=== PATIENT | male | born 1940 | race Caucasian/White ===

== ENCOUNTER → 2016-12-10 | Outpatient (CLI) | payer MEDICARE, OTHER ==
[~2016-12-10] MED LIST: AMLO-145 PO; ASPI1CPM8 PO; DOCU-144 PO; FINA5TAB PO; ISOS10TA2 PO; METO-448 PO; OMEP20CA16 PO; TERA5CAP3 PO
--- NOTE | 2016-12-10 10:18 | RADRPT ---
PROCEDURE: Carotid ultrasound CLINICAL INDICATION: Carotid stenosis with prior right sided endarterectomy., carotid bruits TECHNIQUE: Gonsalez scale, color doppler, spectral doppler ultrasound of the bilateral carotid and micky tebral arteries. This study indirectly references the measurement of the distal ICA diameter as the denominator for s tenosis measurement. Validated velocity measurements with angiographic measurements, velocity criter ia are extrapolated from diameter data as defined by: *Cartoid artery stenosis: gonsalez-scale and Doppl er US diagnosis. Society of Radiologists in Ultrasound Consensus Conference. Radiology 2003; 229: 34 0-346. SRU Consensus Conference Criteria for the Diagnosis of Carotid Artery Stenosis* Degree of Stenosis, % ICA PSV, cm/sec Plaque Estimate, % ICA/CCA PSV Ratio Normal <125 None <2.0 <50 <125 <50 <2.0 50 69 125-230 >50 2.0-4.0 >70 but less than near occlusion >230 >50 <4.0 Near occlusion High, low, or undetectable Visible Variable Total occlusion Undetectable Visible, no detectable lumen Not applicable COMPARISON: Carotid duplex 11/02/2015, CT angiography of the neck 11/04/2015 FINDINGS: Location Right CCA53 cm/sec Prox ICA 93 cm/sec Mid KOU611 cm/sec Dist XGO731 cm/sec ECA83 cm/sec ICA/CCA2.6 Left CCA70 cm/sec Prox ICA 92 cm/sec Mid BAN768 cm/sec Dist KXM586 cm/sec VDA852 cm/sec ICA/CCA2.8 Plaque burden: Minimal plaque is present within the right internal carotid artery, improved. Modera te plaque is present within the left internal carotid artery, unchanged Antegrade flow is seen within the vertebral arteries bilaterally. IMPRESSION: Although velocities are minimally elevated within the right internal carotid artery there is no khoa esponding significant plaque seen; this is significantly improved in appearance compatible with the history of prior right endarterectomy. Moderate plaque within the left internal carotid artery producing flow acceleration compatible with 50 - 69% stenosis is similar in appearance although velocities are slightly decreased from prior exa mination. RPTAT: AADD .Gasotn Reese MD, MD Date Time Electronically viewed and signed by .Gaston Reese MD, on 12/10/2016 10:18 .B/
== END | disposition home or self-care (01) ==
LOC: VAS 09:03
PROVIDERS: ATTEND Family Medicine
DX: I65.22 Occlusion and stenosis of left carotid artery (principal); Z98.890 Other specified postprocedural states
CPT/HCPCS: 93880

== ENCOUNTER → 2017-10-24 | Outpatient (CLI) | END | disposition home or self-care (01) ==

== ENCOUNTER → 2018-05-21 | Outpatient (CLI) | END | disposition home or self-care (01) ==

== ENCOUNTER 2018-11-13 11:00 | Inpatient (IN) | payer MEDICARE, OTHER ==
[2018-11-10 12:51] VITALS: BMI 27.1
[~2018-11-13] VITALS: Ht 172.7 cm; Wt 85.9 kg
[~2018-11-13 11:00] MED LIST changes: -AMLO-145 PO; +ASPI-535 PO; -ASPI1CPM8 PO; -FINA5TAB PO; +FINA5TAB4 PO; +FLUT16SP17 NASAL; +HYDR12.544 PO; -ISOS10TA2 PO; +METO-407 PO; -METO-448 PO; +NIFE30TA23 PO; -OMEP20CA16 PO
[2019-03-31] VITALS (18 sets, daily range): BP systolic 116–198; BP diastolic 45–87; PULSE 61–89; RESP 13–30; Ht 172.7 cm; Wt 85.9 kg
[2019-03-31] MEDS ORDERED: LACTATED RINGER'S 1,000 ML IV SCH (15:00)
[2019-03-31] MEDS ORDERED: THROMBIN 5000 UNIT (RECOTHROM) VIAL ONE (15:55)
[2019-03-31] MEDS ORDERED: GELATIN SIZE 100 SPONGE ONE (15:55)
[2019-03-31] MEDS ORDERED: HEPARIN 1000 UNITS/ML 10 ML INJ ONE ×2 (15:56→17:57)
[2019-03-31] MEDS ORDERED: LIDOCAINE 1% (MPF) 30 ML INJ ONE (15:56)
[2019-03-31] MEDS ORDERED: IOHEXOL 300MG/ML 30 ML BTL ONE (15:56)
[2019-03-31] MEDS ORDERED: HEPARIN 1000 UNITS/ML 10 ML INJ IRR ONE (16:30)
[2019-03-31] MEDS ORDERED: HYDROmorphONE 1 MG/5 ML IV SYRINGE IV PRN ×2 (17:00)
[2019-03-31] MEDS ORDERED: PROCHLORPERAZINE 10 MG INJ IV PRN (17:00)
[2019-03-31] MEDS ORDERED: SEVOFLURANE 15 MIN ONE (17:00)
[2019-03-31] MEDS ORDERED: GLYCOPYRROLATE 0.4 MG INJ ONE (17:00)
[2019-03-31] MEDS ORDERED: DIPHENHYDRAMINE 50 MG INJ IV PRN (17:00)
[2019-03-31] MEDS ORDERED: MEPERIDINE 25 MG INJ IV PRN (17:00)
[2019-03-31] MEDS ORDERED: NEOSTIGMINE 3 MG/3 ML SYRINGE ONE (17:00)
[2019-03-31] MEDS ORDERED: ONDANSETRON 4 MG INJ IV PRN ×2 (17:00→20:00)
[2019-03-31] MEDS ORDERED: FENTAnyl 50 MCG/ML VIAL IV PRN ×2 (17:00→20:00)
[2019-03-31] MEDS ORDERED: ROCURONIUM 50 MG INJ ONE (17:28)
[2019-03-31] MEDS ORDERED: ONDANSETRON 4 MG INJ ONE (17:28)
[2019-03-31] MEDS ORDERED: LIDOCAINE 2% (SDV) 5 ML INJ ONE (17:28)
[2019-03-31] MEDS ORDERED: SUCCINYLCHOLINE CHLORIDE 100 MG/5 ML SYG IV ONE (17:28)
[2019-03-31] MEDS ORDERED: DEXAMETHASONE 4 MG/ML 5 ML INJ ONE (17:28)
[2019-03-31] MEDS ORDERED: PROPOFOL 20 ML ONE (17:28)
[2019-03-31] MEDS ORDERED: FAMOTIDINE 20 MG INJ ONE (17:28)
[2019-03-31] MEDS ORDERED: CLINDAMYCIN 900 MG (PMX) 50 ML IVPB ONE (17:48)
[2019-03-31] MEDS ORDERED: FENTAnyl 50 MCG/ML VIAL ONE (19:26)
[2019-03-31] MEDS ORDERED: hydrALAzine 20 MG INJ ONE (19:28)
[2019-03-31] MEDS ORDERED: HYDROmorphONE 0.5 MG/0.5 ML SYG IV PRN ×2 (20:00)
[2019-03-31] MEDS ORDERED: hydrALAzine 20 MG INJ IV PRN (20:00)
[2019-04-01] VITALS (52 sets, daily range): BP systolic 104–183; BP diastolic 49–139; PULSE 73–120; RESP 15–28
[2019-04-01] MEDS: HYDROmorphONE 1 MG/ML SYG IV PRN ×4 (01:24→16:23)
[2019-04-01] MEDS: FINASTERIDE 5 MG TAB PO SCH (08:40)
[2019-04-01] MEDS ORDERED: METOPROLOL 100 MG TAB PO SCH (09:00)
[2019-04-01] MEDS ORDERED: NIFEdipine (XL) 30 MG TAB PO SCH (09:00)
[2019-04-01] MEDS ORDERED: METOPROLOL 5 MG INJ IV ONE (09:30)
[2019-04-01] MEDS ORDERED: NA POLYST SULFON 15 GM/60 ML BTL PO ONE (11:30)
[2019-04-01] MEDS: SOD CHLORIDE 0.9% 1,000 ML IV SCH (11:37)
[2019-04-01] MEDS ORDERED: NIFEdipine (XL) 30 MG TAB PO ONE (13:00)
[2019-04-01] MEDS ORDERED: hydrALAzine 20 MG INJ IV PRN (13:00)
[2019-04-01] MEDS: METOPROLOL 100 MG TAB PO SCH (21:36)
[2019-04-01] MEDS: NIFEdipine (XL) 30 MG TAB PO SCH (21:36)
[2019-04-02] VITALS (29 sets, daily range): BP systolic 93–182; BP diastolic 51–143; PULSE 72–98; RESP 15–29
[2019-04-02] MEDS: HYDROmorphONE 1 MG/ML SYG IV PRN ×3 (02:51→18:17)
[2019-04-02] MEDS: SOD CHLORIDE 0.9% 1,000 ML IV SCH (05:17)
[2019-04-02] MEDS: FINASTERIDE 5 MG TAB PO SCH (08:02)
[2019-04-02] MEDS: METOPROLOL 100 MG TAB PO SCH ×2 (08:03→21:43)
[2019-04-02] MEDS: NIFEdipine (XL) 30 MG TAB PO SCH (08:03)
[2019-04-02] MEDS: NIFEdipine (XL) 60 MG TAB PO SCH ×2 (08:11→21:47)
[2019-04-02] MEDS: TERAZOSIN 5 MG CAP PO SCH ×2 (09:12→21:46)
[2019-04-02] MEDS: GUAIFENESIN/DM 5ML CUP PO PRN (21:42)
[2019-04-02] MEDS ORDERED: DOCUSATE SODIUM 100 MG CAP PO PRN (22:00)
[2019-04-03] VITALS (8 sets, daily range): BP systolic 121–146; BP diastolic 36–65; PULSE 70–89; RESP 18–22
[2019-04-03] MEDS: BETHANECHOL 10 MG TAB PO SCH ×3 (09:31→20:29)
[2019-04-03] MEDS: NIFEdipine (XL) 60 MG TAB PO SCH ×2 (09:31→20:29)
[2019-04-03] MEDS: TERAZOSIN 5 MG CAP PO SCH ×2 (09:31→20:29)
[2019-04-03] MEDS: METOPROLOL 100 MG TAB PO SCH ×2 (09:32→20:30)
[2019-04-03] MEDS: FINASTERIDE 5 MG TAB PO SCH (09:32)
[2019-04-03] MEDS: NA PHOSPHATE/BIPHOS 133 ML ENEMA PR PRN (12:24)
[2019-04-03] MEDS ORDERED: CHLORPROMAZINE 10 MG TAB PO ONE (16:30)
[2019-04-03] MEDS ORDERED: CHLORPROMAZINE 25 MG TAB PO ONE (18:30)
[2019-04-04] VITALS (7 sets, daily range): BP systolic 121–153; BP diastolic 59–77; PULSE 65–83; RESP 18–19
[2019-04-04] MEDS: NA PHOSPHATE/BIPHOS 133 ML ENEMA PR PRN (05:34)
[2019-04-04] MEDS: BETHANECHOL 10 MG TAB PO SCH ×3 (08:56→20:54)
[2019-04-04] MEDS: FINASTERIDE 5 MG TAB PO SCH (08:57)
[2019-04-04] MEDS: NIFEdipine (XL) 60 MG TAB PO SCH ×2 (08:57→20:54)
[2019-04-04] MEDS: TERAZOSIN 5 MG CAP PO SCH ×2 (08:57→20:52)
[2019-04-04] MEDS: METOPROLOL 100 MG TAB PO SCH ×2 (08:57→20:54)
[2019-04-04] MEDS: GUAIFENESIN/DM 5ML CUP PO PRN (16:50)
[2019-04-05 04:20] VITALS: BP 120/75; PULSE 62; RESP 18
[2019-04-05 07:15] VITALS: BP 136/63; PULSE 78; RESP 18
[2019-04-05] MEDS: FINASTERIDE 5 MG TAB PO SCH (08:58)
[2019-04-05] MEDS: BETHANECHOL 10 MG TAB PO SCH ×3 (08:58→21:05)
[2019-04-05] MEDS: METOPROLOL 100 MG TAB PO SCH ×2 (08:58→21:05)
[2019-04-05] MEDS: NIFEdipine (XL) 60 MG TAB PO SCH ×2 (08:58→21:07)
[2019-04-05] MEDS: TERAZOSIN 5 MG CAP PO SCH ×2 (08:58→21:06)
[2019-04-05 11:34] VITALS: BP 125/69; PULSE 89; RESP 18
[2019-04-05 15:04] VITALS: BP 144/64; PULSE 78; RESP 18
[2019-04-05 20:00] VITALS: BP 159/69; PULSE 78; RESP 18
[2019-04-05] MEDS: GUAIFENESIN/DM 5ML CUP PO PRN (21:40)
[2019-04-06] VITALS: BP 140/65; PULSE 76; RESP 18
[2019-04-06 04:00] VITALS: BP 145/72; PULSE 91; RESP 18
[2019-04-06 07:25] VITALS: BP 158/72; PULSE 76; RESP 18
[2019-04-06] MEDS: FINASTERIDE 5 MG TAB PO SCH (09:18)
[2019-04-06] MEDS: BETHANECHOL 10 MG TAB PO SCH ×2 (09:20→13:48)
[2019-04-06] MEDS: TERAZOSIN 5 MG CAP PO SCH (09:20)
[2019-04-06] MEDS: NIFEdipine (XL) 60 MG TAB PO SCH (09:21)
[2019-04-06] MEDS: METOPROLOL 100 MG TAB PO SCH (09:22)
[2019-04-06] MEDS: GUAIFENESIN/DM 5ML CUP PO PRN (09:22)
[2019-04-06] MEDS ORDERED: ACETAMINOPHEN 325 MG TAB PO PRN (11:00)
[2019-04-06 11:27] VITALS: BP 150/66; PULSE 67; RESP 18
[2019-04-06 15:25] VITALS: BP 138/64; PULSE 78; RESP 18
== END 2019-04-06 17:00 | DRG 38 ==
LOC: REC 03-31 13:58 → ICU 03-31 20:18 → 6WM 04-03 01:09
PROVIDERS: ADMIT Thoracic Surgery (Cardiothoracic Vascular Surgery); ATTEND Thoracic Surgery (Cardiothoracic Vascular Surgery)
PROC: B31 Imaging, Upper Arteries, Fluoroscopy (ICD-10-PCS; 2019-03-31)
PROC: 30233N1 Transfusion of Nonautologous Red Blood Cells into Peripheral Vein, Percutaneous Approach (ICD-10-PCS; 2019-03-31)
PROC: 03CJ0ZZ Extirpation of Matter from Left Common Carotid Artery, Open Approach (ICD-10-PCS; principal; 2019-03-31 15:00)
DX: I65.22 Occlusion and stenosis of left carotid artery (principal); N17.9 Acute kidney failure, unspecified; N18.4 Chronic kidney disease, stage 4 (severe); E87.5 Hyperkalemia; D69.6 Thrombocytopenia, unspecified; N13.9 Obstructive and reflux uropathy, unspecified; I12.9 Hypertensive chronic kidney disease with stage 1 through stage 4 chronic kidney disease, or unspecified chronic kidney disease; N40.1 Benign prostatic hyperplasia with lower urinary tract symptoms; R33.8 Other retention of urine; I25.10 Atherosclerotic heart disease of native coronary artery without angina pectoris; D64.9 Anemia, unspecified; Z79.82 Long term (current) use of aspirin
CPT/HCPCS: 36430; 70360; 71045; 76775; 80048; 80053; 81001; 81003; 82043; 82550; 82553; 83735; 84100; 84155; 84300; 84484; 85025; 85610; 85730; 86850; 86900; 86901; 86920; 87081; 88304; 93005; 97110; 97116; 97162; 97530; A4310; C1725; J0360; J1100; J1170; J1644; J2175; J2405; J2710; J3010; J3230; J7030; J7120; P9016; Q9967

== ENCOUNTER 2018-11-27 10:45 | Inpatient (IN) | payer MEDICARE, OTHER ==
[~2018-11-27] VITALS: Ht 180.3 cm; Wt 85.0 kg
[~2018-11-27 10:45] MED LIST changes: +CLON0.2T5 PO; -FLUT16SP17 NASAL; -HYDR12.544 PO; +IRBE150T21 PO; +PANT40TA3 PO
[2018-11-27] MEDS ORDERED: HYDR12.58 PO (13:02)
[2018-11-27] MEDS ORDERED: ACETAMINOPHEN 325 MG TAB PO PRN ×2 (13:30→15:00)
[2018-11-27] MEDS ORDERED: NA POLYST SULFON 15 GM/60 ML BTL PO ONE (13:30)
[2018-11-27] MEDS ORDERED: ONDANSETRON 4 MG INJ IV PRN ×2 (13:30→15:00)
--- NOTE | 2018-11-27 14:23 | ERD ---
ER Documentation Chief Complaint Chief Complaint SENT BY PMD FOR K LEVEL>6 BLOOD DRAWN ON SATURDAY. DENIES CP. + PEDAL EDEMA HPI Patient is a 78-year-old male with chronic kidney disease and anemia but no dialysis who presents for hyperkalemia. The patient was sent by his microphone operator Dr. Camara as he has had 2 outpatient laboratory studies of potassium which have been elevated greater than 6. He has had a creatinine which has been worsening. He feels leg weakness and feels tired. He has had no treatment as of yet. ROS All systems reviewed and are negative except as per history of present illness. Medications Home Meds Reported Medications Hydrochlorothiazide* (Hydrochlorothiazide*) 12.5 Mg Tablet, 12.5 MG PO DAILY, #30 TAB 11/27/18 Pantoprazole* (Protonix*) 40 Mg Tablet.dr, 40 MG PO DAILY, TAB 11/10/18 Terazosin Hcl* (Terazosin Hcl*) 5 Mg Capsule, 5 MG PO BID, CAP 11/10/18 Docusate Sodium* (Colace*) 100 Mg Capsule, 100 MG PO BID, #60 CAP 11/10/18 Nifedipine* (Nifedipine ER*) 30 Mg Tablet.sa, 30 MG PO DAILY, TAB.SA 11/10/18 Finasteride* (Finasteride*) 5 Mg Tablet, 5 MG PO DAILY, TAB 11/10/18 Metoprolol Tartrate* (Lopressor*) 100 Mg Tablet, 100 MG PO BID, #60 TAB 11/10/18 Clonidine Hcl* (Clonidine Hcl*) 0.2 Mg Tablet, 0.2 MG PO BID PRN for ELEVATED BLOOD PRESSURE, TAB 11/10/18 Aspirin Ec (Aspir 81) 81 Mg Tablet.dr, 81 MG PO DAILY, #30 TAB 09/20/18 Discontinued Reported Medications Irbesartan* (Irbesartan*) 150 Mg Tablet, 150 MG PO BID, TAB 11/10/18 Allergies Allergies: Coded Allergies: Penicillins (Verified Allergy, Unknown, 11/27/18) egg (Unverified Allergy, Unknown, 11/27/18) PMhx/Soc History of Surgery: Yes (RT CAROTID ENDARTERECTOMY) Anesthesia Reaction: No Hx Neurological Disorder: No Hx Respiratory Disorders: No Hx Cardiac Disorders: Yes (HTN , LT CAROTID STENOSIS) Hx Psychiatric Problems: No Hx Miscellaneous Medical Probl: Yes (RENAL INSUFFICIENCY, ANEMIA ) Hx Alcohol Use: No Hx Substance Use: No Hx Tobacco Use: No Smoking Status: Never smoker FmHx Family History: No diabetes Physical Exam Vitals Vital Signs Date Temp Pulse Resp B/P (MAP) Pulse Ox O2 O2 Flow FiO2 Time Delivery Rate 11/27/18 56 151/69 98 Room Air 14:12 (96) 11/27/18 97.9 58 161/63 100 Room Air 12:01 (95) 11/27/18 97.9 54 18 137/60 99 11:10 (85) Physical Exam Const: No acute distress Head: Atraumatic Eyes: Normal Conjunctiva ENT: Normal External Ears, Nose and Mouth. Neck: Full range of motion. No meningismus. Resp: Clear to auscultation bilaterally Cardio: Regular rate and rhythm, no murmurs Abd: Soft, non tender, non distended. Normal bowel sounds Skin: No petechiae or rashes Back: No midline or flank tenderness Ext: No cyanosis, or edema Neur: Awake and alert Psych: Normal Mood and Affect Result Diagram: 11/27/18 1219 11/27/18 1219 Results 24 hrs Laboratory Tests Test 11/27/18 12:19 White Blood Count 5.1 10^3/ul Red Blood Count 3.21 10^6/ul Hemoglobin 8.9 g/dl Hematocrit 28.5 % Mean Corpuscular Volume 88.8 fl Mean Corpuscular Hemoglobin 27.7 pg Mean Corpuscular Hemoglobin Concent 31.2 g/dl Red Cell Distribution Width 15.1 % Platelet Count 119 10^3/UL Mean Platelet Volume 9.2 fl Immature Granulocytes % 0.200 % Neutrophils % 63.1 % Lymphocytes % 20.2 % Monocytes % 9.3 % Eosinophils % 6.6 % Basophils % 0.6 % Nucleated Red Blood Cells % 0.0 /100WBC Immature Granulocytes # 0.010 10^3/ul Neutrophils # 3.2 10^3/ul Lymphocytes # 1.0 10^3/ul Monocytes # 0.5 10^3/ul Eosinophils # 0.3 10^3/ul Basophils # 0.0 10^3/ul Nucleated Red Blood Cells # 0.0 10^3/ul Sodium Level 139 mmol/L Potassium Level 5.3 mmol/L Chloride Level 108 mmol/L Carbon Dioxide Level 23 mmol/L Anion Gap 8 Blood Urea Nitrogen 42 mg/dl Creatinine 2.55 mg/dl Est Glomerular Filtrat Rate mL/min mL/min Glucose Level 100 mg/dl Calcium Level 8.8 mg/dl Current Medications Medications Dose Sig/Ganesh Start Time Status Last (Trade) Ordered Route PRN Stop Time Admin Dose Reason Admin Sodium 30 gm ONCE ONCE 11/27/18 DC 11/27/18 Polystyrene PO 13:30 13:12 Sulfonate 11/27/18 13:31 (Kayexalate) Ondansetron 4 mg ER BRIDGE 11/27/18 HCl (Zofran PRN IV 13:30 Inj) NAUSEA/VOMITI 11/28/18 13:29 NG 650 mg ER BRIDGE 11/27/18 Acetaminophen PRN PO 13:30 (Tylenol .MILD PAIN 11/28/18 13:29 Tab) 1-3 OR TEMP Procedures/MDM EKG read by me: Rate/Rhythm: Sinus bradycardia Intervals: Normal Impression: Sinus bradycardia without peaked T waves or widened QRS Patient is a 78-year-old male who presents with acute on chronic renal failure and hyperkalemia. Patient's potassium was 5.3 and he was given Kayexalate by mouth. I consulted Dr. Camara who came to the bedside and saw the patient. The patient will be admitted to the panel team to a telemetry bed. Dr. Bhakta will admit the patient. I do believe that inpatient admission is appropriate at this time given hyperkalemia and worsening renal failure. The patient has already been worked up as an outpatient but is failed outpatient workup at this time. Departure Diagnosis: Primary Impression: Hyperkalemia Additional Impression: Renal failure (ARF), acute on chronic Acute renal failure type: unspecified Chronic kidney disease stage: unspecified stage Qualified Codes: N17.9 - Acute kidney failure, unspecified; N18.9 - Chronic kidney disease, unspecified Condition: ROBIN Moyer MD Nov 27, 2018 14:23
[2018-11-27] MEDS ORDERED: NACL 0.9% 3 ML SYG IV SCH (15:00)
[2018-11-27] MEDS ORDERED: MAGNESIUM HYDROXIDE 30ML CUP PO PRN (15:00)
[2018-11-27] MEDS ORDERED: DOCUSATE SODIUM 100 MG CAP PO PRN (15:00)
[2018-11-27] MEDS ORDERED: GUAIFENESIN/DM 5ML CUP PO PRN (15:00)
--- NOTE | 2018-11-27 15:15 | HP ---
Date/Time of Note Date/Time of Note DATE: 11/27/18 TIME: 14:32 Assessment/Plan VTE Prophylaxis SCD applied (from Nsg): Yes Pharmacological prophylaxis: heparin Lines/Catheters IV Catheter Type (from Nrsg): Saline Lock Assessment/Plan Assessment/Plan 1. Acute on chronic renal failure - Nephrology on board and appreciate recommendations. - Will avoid nephrotoxic agents - holding hctz 2. Hyperkalemia - K 5.3 but per daughter was 6.4 as outpatient - will continue monitoring - No cardiac issues appreciated 3. HTN - continue home medications with holding parameters 4. chronic thrombocytopenia - plt stable - no petechiae appreciated 5. BPH - continue home medications 6. anemia - stable - no transfusion needed at this time 7. Left carotid stenosis - evaluated by Dr. Torres as outpatient 8. Diet - Renal/Cardiac 9. DVT ppx - Heparin 10. Disposition - Admit to telemetry for treatment of acute renal failure and hyperkalemia. Will be evaluated by Nephrology and plan of care determined based on clinical progress Result Diagram: 11/27/18 1219 11/27/18 1219 Results 24hrs Laboratory Tests Test 11/27/18 12:19 White Blood Count 5.1 Red Blood Count 3.21 L Hemoglobin 8.9 L Hematocrit 28.5 L Mean Corpuscular Volume 88.8 Mean Corpuscular Hemoglobin 27.7 L Mean Corpuscular Hemoglobin Concent 31.2 L Red Cell Distribution Width 15.1 H Platelet Count 119 L Mean Platelet Volume 9.2 Immature Granulocytes % 0.200 Neutrophils % 63.1 Lymphocytes % 20.2 Monocytes % 9.3 Eosinophils % 6.6 Basophils % 0.6 Nucleated Red Blood Cells % 0.0 Immature Granulocytes # 0.010 Neutrophils # 3.2 Lymphocytes # 1.0 Monocytes # 0.5 Eosinophils # 0.3 Basophils # 0.0 Nucleated Red Blood Cells # 0.0 Sodium Level 139 Potassium Level 5.3 H Chloride Level 108 Carbon Dioxide Level 23 Anion Gap 8 Blood Urea Nitrogen 42 H Creatinine 2.55 H Est Glomerular Filtrat Rate mL/min Glucose Level 100 Calcium Level 8.8 HPI/ROS Admit Date/Time Admit Date/Time 11/27/18 1300 Hx of Present Illness 78 yo M with PMH HTN, right carotid stenosis, DEEPAK on CKD, anemia, chronic th rombocytopenia, and BPH was sent by [employer] due to elevated K of 6.4. Patient denies any dizziness, chest pain, shortness of breath, muscle spasms, palpitations, abdominal issues, or urinary issues. Patient does admits to productive cough for the past 2 weeks with occasional yellow phlegm but denies any fevers or chills. Patient was recently discharged in September after admission for syncopal episode. Since discharge he was supposed to follow up with Dr. Torres due to L sided carotid stenosis. Per daughter, he did not undergo the procedure since was told his renal function and potassium was not optimal. Patient does admit to bilateral ankle swelling. In ED, patient was found with K 5.3 and was seen by Dr. Camara. ROS All 12 systems reviewed and pertinent positives as per HPI. All others negative. Constitutional: No fatigue, No nausea Eyes: No discharge ENT: No congestion Respiratory: cough, sputum; No shortness of breath, No wheezing Cardiovascular: edema; No chest pain, No lightheadedness, No palpitations Gastrointestinal: No pain, No constipation, No diarrhea, No nausea, No vomiting Genitourinary: no complaints Musculoskeletal: No back pain Skin: No erythema, No laceration, No rash Neurologic: No confusion, No focal-weakness, No syncope Endocrine: no complaints Lymphatic: no complaints Psychological: nl mood/affect Immunologic: no complaints PMH/Family/Social Past Medical History Medical History: hypertension, renal disease, other (right carotid stenosis, anemia, BPH, thrombocytopenia) Medications Current Medications Ondansetron HCl (Zofran Inj) 4 mg ER BRIDGE PRN IV NAUSEA/VOMITING; Start 11/27/18 at 13:30; Stop 11/28/18 at 13:29 Acetaminophen (Tylenol Tab) 650 mg ER BRIDGE PRN PO .MILD PAIN 1-3 OR TEMP; Start 11/27/18 at 13:30; Stop 11/28/18 at 13:29 Coded Allergies: Penicillins (Verified Allergy, Unknown, 11/27/18) egg (Unverified Allergy, Unknown, 11/27/18) Past Surgical History Past Surgical Hx: other (right CEA) Family History Significant Family History: no pertinent family hx Social History Alcohol Use: none Smoking Status: Never smoker Drug Use: none Exam/Review of Systems Vital Signs Vitals Vital Signs Date Temp Pulse Resp B/P (MAP) Pulse Ox O2 O2 Flow FiO2 Time Delivery Rate 4/18/19 56 151/69 98 Room Air 14:12 (96) 11/27/18 97.9 12:01 11/27/18 18 11:10 Exam Exam General: Patient is a pleasant male currently lying in bed in no acute distress HEENT: Atraumatic, normocephalic. The pupils are equal, round and reactive. Extraocular motor are intact Neck: Supple with full range of motion. No rigidity or meningismus, left carotid murmurs Lungs: Clear to auscultation bilaterally no crackles rales or wheezing CVS: Normal S1-S2, Regular rhythm and rate. no murmurs Abdomen: Soft , nontender, nondistended , bowel sounds are present. No guarding no rebound tenderness , No masses or organomegaly. No costovertebral temporal angle mass Extremities: swelling ankles bilaterally, Normal to inspection, no cyanosis Neurologic: Normal mental status, speech normal, cranial nerves II through XII are intact, motor and sensory are intact, gait not assessed Skin: no rashes or lesions appreciated. Additional Comments Home medications reviewed ALEXIS LAGOS MD Nov 27, 2018 14:49
--- NOTE | 2018-11-27 18:03 | CONS ---
DATE OF ADMISSION: 11/27/2018 DATE OF CONSULTATION: 11/27/2018 TYPE OF CONSULTATION: Nephrology. REASON FOR CONSULTATION: Chronic kidney disease and hyperkalemia. PHYSICIAN REQUESTING CONSULT: Mily Bhakta MD HISTORY OF PRESENT ILLNESS: This is a 78-year-old male with a past medical history of chronic kidney disease stage III-B/IV with a baseline creatinine around 2.3 mg/dL, history of hypertension, carotid stenosis, history of BPH, who presented to [facility] for evaluation of hyperkalem ia. The patient was seen by myself in outpatient setting, but was noted to have hyperkalemia with po tassium levels greater than 6.2 to 6.4 mEq per liter. The patient was given a course of Kayexalate w ithout significant improvement. As a result, he was brought into [facility] for evaluation. Th e patient upon arrival had laboratory data drawn which showed potassium level of 5.3. The patient wa s subsequently admitted for further evaluation. PAST MEDICAL HISTORY: History of CKD, history of hypertension, history of BPH, history of carotid st enosis, history of anemia. PAST SURGICAL HISTORY: Status post carotid endarterectomy. FAMILY HISTORY: No family history of kidney disease. SOCIAL HISTORY: Does not drink, smoke or do drugs. MEDICATIONS: Have been reviewed. REVIEW OF SYSTEMS: A 14-point review of systems was conducted. Pertinent positives stated in HPI, o therwise negative. PHYSICAL EXAMINATION: VITAL SIGNS: Blood pressure is 145/76, respirations 16, pulse , temperature 98.0. HEENT: Head is normocephalic. NECK: Supple. HEART: Regular rate. LUNGS: Show diminished breath sounds at base. ABDOMEN: Soft, nontender to palpation without rebound or guarding. EXTREMITIES: Negative for clubbing, cyanosis. No edema. DERMATOLOGIC: No rashes. MUSCULOSKELETAL: No joint effusions. NEUROLOGIC: No change in exam. LABORATORY DATA: From 11/27/2018 was reviewed. The patient's sodium was 139, potassium 5.3, BUN 42, creatinine 2.55. White count 5.1, hemoglobin 8.9, platelet count is 119. ASSESSMENT AND PLAN: 1. Chronic kidney disease stage for III-B/IV with baseline creatinine around 2.3 mg/dL. The patient 's renal function is currently near baseline. At this point, we will continue current treatment plan , supportive care, renally dose all meds. Defer any MARLENA inhibitor or ARB due to underlying hyperkale robyn. 2. Hyperkalemia secondary to acute kidney injury and chronic kidney disease. The patient's potassiu m levels have been improving. We would agree with Kayexalate. Defer an MARLENA inhibitor and monitor. 3. Mineral bone disorder. Monitor calcium and phosphorus levels. Continue vitamin D analogs. 4. Anemia. Monitor hemoglobin and hematocrit levels. 5. Carotid stenosis. The patient is pending carotid endarterectomy by Dr. Torres which can be do ne in outpatient setting. 6. Benign prostatic hypertrophy. Continue medical management. 7. History of coronary artery disease. Continue current treatment plan. 8. Chronic thrombocytopenia. Thank you, Dr. Bhakta, for this interesting consult. It will be a pleasure to follow patient with yo u throughout the hospital course. Dictated By: EDWARD MAYS DO NR/NTS Conf#: [id number] DID#: [id number] CC: ROBIN KEN MD;*EndCC*
[2018-11-27 18:30] VITALS: BP 192/79; PULSE 62; RESP 20; Ht 180.3 cm; Wt 85.0 kg
[2018-11-27 19:31] VITALS: BP 179/76; PULSE 64; RESP 20
[2018-11-27 20:00] VITALS: PULSE 63
[2018-11-27] MEDS ORDERED: TERAZOSIN 1 MG CAP ONE (20:39)
[2018-11-27] MEDS: HEPARIN 5,000 UNIT/1 ML VIAL SC SCH (20:46)
[2018-11-27] MEDS: METOPROLOL 100 MG TAB PO SCH (21:00)
[2018-11-27] MEDS: TERAZOSIN 5 MG CAP PO SCH (22:38)
[2018-11-27 23:50] VITALS: BP 190/79; PULSE 66; RESP 19
[2018-11-28] VITALS (12 sets, daily range): BP systolic 153–186; BP diastolic 67–77; PULSE 55–91; RESP 18–20
[2018-11-28] MEDS ORDERED: INSULIN REGULAR, HUMAN 100 UNIT/1 ML 3ML VIAL IVP STA ×2 (08:25→08:31)
[2018-11-28] MEDS ORDERED: DEXTROSE 50% 50 ML SYRINGE IV PRN (08:30)
[2018-11-28] MEDS ORDERED: hydrALAzine 20 MG INJ IV PRN (09:00)
[2018-11-28] MEDS ORDERED: NA POLYST SULFON 15 GM/60 ML BTL PO ONE ×3 (09:00→11:00)
[2018-11-28] MEDS ORDERED: NIFEdipine (XL) 30 MG TAB PO SCH (09:00)
[2018-11-28] MEDS: PANTOPRAZOLE (EC) 40 MG TAB PO SCH (09:40)
[2018-11-28] MEDS: ASPIRIN (EC) 81 MG TAB PO SCH (09:40)
[2018-11-28] MEDS: TERAZOSIN 5 MG CAP PO SCH ×2 (09:40→20:58)
[2018-11-28] MEDS: FINASTERIDE 5 MG TAB PO SCH (09:40)
[2018-11-28] MEDS: METOPROLOL 100 MG TAB PO SCH ×2 (09:41→20:59)
[2018-11-28] MEDS: HEPARIN 5,000 UNIT/1 ML VIAL SC SCH ×2 (09:51→21:15)
--- NOTE | 2018-11-28 10:03 | PN ---
DATE: 11/28/2018 SUBJECTIVE: The patient is stable, no events overnight. Blood pressure remains elevated. OBJECTIVE: VITAL SIGNS: Blood pressure is 161/67, respirations 20, temperature 98.6. HEENT: Head is normocephalic. NECK: Supple. HEART: Regular rate. LUNGS: Show diminished breath sounds at the base. ABDOMEN: Soft, nontender to palpation without rebound or guarding. EXTREMITIES: Negative for clubbing, cyanosis, no edema. DERMATOLOGIC: No rashes. MUSCULOSKELETAL: No joint effusions. NEUROLOGIC: No change in exam. MEDICATIONS: Reviewed. LABORATORY DATA: From 11/28/2018 has been reviewed. ASSESSMENT AND PLAN: 1. Chronic kidney disease, stage IIIB/IV with baseline creatinine around 2.3 to 2.5 mg/dL. The zulma ent's renal function is near baseline. We will continue current treatment plan, supportive care, lisa ally dose all meds. 2. Hyperkalemia. The patient's potassium levels remain elevated. Continue Kayexalate. Continue lo w-potassium diet and monitor closely. 3. Mineral bone disorder, monitor calcium and phosphorus levels. Continue vitamin D analogs. 4. Anemia. Continue to monitor hemoglobin and hematocrit levels. 5. Carotid stenosis. The patient is pending carotid endarterectomy by Dr. Torres. This likely w ill be done in outpatient setting. 6. Benign prostatic hypertrophy. Continue medical management. 7. History of coronary artery disease. 8. Chronic thrombocytopenia. Dictated By: EDWARD MURILLO/NTS Conf#: [id number] DID#: [id number] CC: ALEXIS LAGOS MD;*EndCC*
[2018-11-28] MEDS ORDERED: EPOETIN ALFA-EPBX (ESRD) 10,000 UNIT/ML VIAL SC ONE (11:00)
--- NOTE | 2018-11-28 13:57 | PN ---
Date/Time of Note Date/Time of Note DATE: 11/28/18 TIME: 13:53 Assessment/Plan VTE Prophylaxis Risk score (from Ns)>0 risk: 3 SCD applied (from [facility] [place]): No SCD contraindicated: low risk/ambulating Pharmacological prophylaxis: heparin Lines/Catheters IV Catheter Type (from [facility] Saline Lock Assessment/Plan Assessment/Plan 1. Acute on chronic renal failure - Nephrology on board and appreciate recommendations. Patient appears to be at baseline - Will avoid nephrotoxic agents 2. Hyperkalemia - Remains elevated and will give insulin/dextrose and Kayexalate - will continue monitoring - No cardiac issues appreciated 3. HTN - May need to add hydralazine given BP remains elevated and HR persists in the 50s 4. chronic thrombocytopenia - if continues to drop, will need to hold anticoag - no petechiae appreciated 5. BPH - continue home medications 6. anemia - stable - no transfusion needed at this time 7. Left carotid stenosis - evaluated by Dr. Torres as outpatient and will need to follow up after discharge for CEA 8. Disposition - Continue treatment for hyperkalemia Result Diagram: 11/28/1852811/28/18528 Results 24hrs Laboratory Tests Test 11/28/18 05:29 White Blood Count 5.0 Red Blood Count 2.92 L Hemoglobin 8.0 L Hematocrit 25.7 L Mean Corpuscular Volume 88.0 Mean Corpuscular Hemoglobin 27.4 L Mean Corpuscular Hemoglobin Concent 31.1 L Red Cell Distribution Width 15.3 H Platelet Count 109 L Mean Platelet Volume 9.5 Immature Granulocytes % 0.400 Neutrophils % 59.0 Lymphocytes % 21.2 Monocytes % 11.6 H Eosinophils % 7.2 H Basophils % 0.6 Nucleated Red Blood Cells % 0.0 Immature Granulocytes # 0.020 Neutrophils # 3.0 Lymphocytes # 1.1 Monocytes # 0.6 Eosinophils # 0.4 Basophils # 0.0 Nucleated Red Blood Cells # 0.0 Sodium Level 140 Potassium Level 5.9 H Chloride Level 110 Carbon Dioxide Level 25 Anion Gap 5 Blood Urea Nitrogen 47 H Creatinine 2.51 H Est Glomerular Filtrat Rate mL/min Glucose Level 81 Calcium Level 8.5 Magnesium Level 2.6 H Subjective 24 Hr Interval Summary Free Text/Dictation Patient denies any acute issues. BP still remains elevated. Exam/Review of Systems Exam Vitals Vital Signs Date Temp Pulse Resp B/P (MAP) Pulse Ox O2 O2 Flow FiO2 Time Delivery Rate 11/28/18 57 12:14 11/28/18 98.8 20 173/72 99 11:06 (105) 11/27/18 Room Air 18:30 Intake and Output 11/27/18 11/27/18 11/28/18 1515:00 23:00 07:00 IntakeIntake Total 300 ml BalanceBalance 300 ml Exam General: no acute distress Neck: Supple with full range of motion. mild left carotid murmurs Lungs: Clear to auscultation bilaterally no crackles rales or wheezing CVS: Normal S1-S2, Regular rhythm and rate. no murmurs Abdomen: Soft , nontender, nondistended , bowel sounds are present. No guarding no rebound tenderness Extremities: mild swelling ankles bilaterally, Normal to inspection, no cyanosis Skin: no rashes or lesions appreciated. Results Results 24hrs Laboratory Tests Test 11/28/18 05:29 White Blood Count 5.0 Red Blood Count 2.92 L Hemoglobin 8.0 L Hematocrit 25.7 L Mean Corpuscular Volume 88.0 Mean Corpuscular Hemoglobin 27.4 L Mean Corpuscular Hemoglobin Concent 31.1 L Red Cell Distribution Width 15.3 H Platelet Count 109 L Mean Platelet Volume 9.5 Immature Granulocytes % 0.400 Neutrophils % 59.0 Lymphocytes % 21.2 Monocytes % 11.6 H Eosinophils % 7.2 H Basophils % 0.6 Nucleated Red Blood Cells % 0.0 Immature Granulocytes # 0.020 Neutrophils # 3.0 Lymphocytes # 1.1 Monocytes # 0.6 Eosinophils # 0.4 Basophils # 0.0 Nucleated Red Blood Cells # 0.0 Sodium Level 140 Potassium Level 5.9 H Chloride Level 110 Carbon Dioxide Level 25 Anion Gap 5 Blood Urea Nitrogen 47 H Creatinine 2.51 H Est Glomerular Filtrat Rate mL/min Glucose Level 81 Calcium Level 8.5 Magnesium Level 2.6 H Medications Medication Current Medications Aspirin (Halfprin) 81 mg DAILY PO Last administered on 11/28/18at 09:40; Admin Dose 81 MG; Start 11/28/18 at 09:00 Clonidine (Catapres) 0.2 mg BID PRN PO SBP >170 Last administered on 11/28/18at 07:24; Admin Dose 0.2 MG; Start 11/27/18 at 15:00 Docusate Sodium (Colace) 100 mg BID PRN PO constipation; Start 11/27/18 at 15:00 Finasteride (Proscar) 5 mg DAILY PO Last administered on 11/28/18 09:40; Admin Dose 5 MG; Start 11/28/18 at 09:00 Metoprolol Tartrate (Lopressor) 100 mg BID PO Last administered on 11/28/18 09:41; Admin Dose 100 MG; Start 11/27/18 at 21:00 Nifedipine (Procardia Xl) 30 mg DAILY PO Last administered on 11/28/18 09:40; Admin Dose 30 MG; Start 11/28/18 at 09:00 Pantoprazole (Protonix Tab) 40 mg DAILY PO Last administered on 11/28/18 09:40; Admin Dose 40 MG; Start 11/28/18 at 09:00 Terazosin HCl (Hytrin) 5 mg BID PO Last administered on 11/28/18 09:40; Admin Dose 5 MG; Start 11/27/18 at 21:00 IV Flush (NS 3 ml) 3 ml PER PROTOCOL IV ; Start 11/27/18 at 15:00 Ondansetron HCl (Zofran Inj) 4 mg Q6H PRN IV NAUSEA/VOMITING; Start 11/27/18 at 15:00 Acetaminophen (Tylenol Tab) 650 mg Q6H PRN PO .PAIN 1-3 OR TEMP; Start 11/27/18 at 15:00 Magnesium Hydroxide (Milk Of Mag) 30 ml DAILY PRN PO .CONSTIPATION; Start 11/27/18 at 15:00 Heparin Sodium (Porcine) (Heparin (5000 Units/1ml)) 5,000 unit Q12 SC Last administered on 11/28/18 09:51; Admin Dose 5,000 UNIT; Start 11/27/18 at 21:00 Guaifenesin/ Dextromethorphan (Robitussin Dm Liquid Cup) 5 ml Q4H PRN PO cough Last administered on 11/27/18 20:41; Admin Dose 5 ML; Start 11/27/18 at 15:00 Hydralazine HCl (Apresoline) 10 mg Q4H PRN IV SBP >170; Start 11/28/18 at 09:00 ALEXIS LAGOS MD Nov 28, 2018 13:57
[2018-11-28] MEDS: NIFEdipine (XL) 30 MG TAB PO SCH (20:59)
[2018-11-29] VITALS (12 sets, daily range): BP systolic 138–175; BP diastolic 59–77; PULSE 65–83; RESP 17–21
[2018-11-29] MEDS: ASPIRIN (EC) 81 MG TAB PO SCH (09:40)
[2018-11-29] MEDS: FINASTERIDE 5 MG TAB PO SCH (09:40)
[2018-11-29] MEDS: NIFEdipine (XL) 30 MG TAB PO SCH ×2 (09:41→21:37)
[2018-11-29] MEDS: PANTOPRAZOLE (EC) 40 MG TAB PO SCH (09:41)
[2018-11-29] MEDS: METOPROLOL 100 MG TAB PO SCH ×2 (09:41→21:37)
[2018-11-29] MEDS: TERAZOSIN 5 MG CAP PO SCH ×2 (09:41→21:37)
[2018-11-29] MEDS: HEPARIN 5,000 UNIT/1 ML VIAL SC SCH ×2 (09:47→21:47)
--- NOTE | 2018-11-29 11:37 | CONS ---
Assessment/Plan Assessment/Plan Assessment/Plan (Daily) 1. Chronic kidney disease, stage IIIB/IV with baseline creatinine around 2.3 to 2.5 mg/dL. The patient's renal function is near baseline. We will continue current treatment plan, supportive care, renally dose all meds. 2. Hyperkalemia. s/p kayexalate. K improved 3. Mineral bone disorder, monitor calcium and phosphorus levels. Continue vitamin D analogs. 4. Anemia. Continue to monitor hemoglobin and hematocrit levels. 5. Carotid stenosis. The patient is pending carotid endarterectomy by Dr. Torres. This likely will be done in outpatient setting. 6. Benign prostatic hypertrophy. Continue medical management. 7. History of coronary artery disease. 8. Chronic thrombocytopenia. Consultation Date/Type/Reason Admit Date/Time Nov 27, 2018 at 13:09 Initial Consult Date Date/Time of Note DATE: 11/29/18 TIME: 11:36 24 HR Interval Summary Free Text/Dictation overnight events reviewed no shortness of breath or n/v d/w rn gen nad cv rrr pulm ctab abd soft, nd, nt +bs ext: no edema Exam/Review of Systems Exam Vitals Vital Signs Date Temp Pulse Resp B/P (MAP) Pulse Ox O2 O2 Flow FiO2 Time Delivery Rate 11/29/18 74 09:43 11/29/18 98.5 17 164/77 96 08:31 (106) 11/27/18 Room Air 18:30 Intake and Output 11/28/18 11/28/18 11/29/18 1515:00 23:00 07:00 IntakeIntake Total 1600 ml OutputOutput Total 900 ml BalanceBalance 700 ml Results Result Diagram: 11/29/18 0600 11/29/18 0600 Results 24hrs Laboratory Tests Test 11/29/18 06:00 White Blood Count 6.3 # Red Blood Count 3.24 L Hemoglobin 8.8 L Hematocrit 28.2 L Mean Corpuscular Volume 87.0 Mean Corpuscular Hemoglobin 27.2 L Mean Corpuscular Hemoglobin Concent 31.2 L Red Cell Distribution Width 15.2 H Platelet Count 127 L Mean Platelet Volume 9.6 Immature Granulocytes % 0.300 Neutrophils % 64.0 Lymphocytes % 21.9 Monocytes % 8.6 Eosinophils % 4.9 Basophils % 0.3 Nucleated Red Blood Cells % 0.0 Immature Granulocytes # 0.020 Neutrophils # 4.0 Lymphocytes # 1.4 Monocytes # 0.5 Eosinophils # 0.3 Basophils # 0.0 Nucleated Red Blood Cells # 0.0 Sodium Level 139 Potassium Level 4.3 Chloride Level 108 Carbon Dioxide Level 22 Anion Gap 9 Blood Urea Nitrogen 40 H Creatinine 2.47 H Est Glomerular Filtrat Rate mL/min Glucose Level 95 Calcium Level 8.7 Phosphorus Level 4.1 Magnesium Level 2.4 Medications Medication Current Medications Aspirin (Halfprin) 81 mg DAILY PO Last administered on 11/29/18 09:40; Admin Dose 81 MG; Start 11/28/18 at 09:00 Clonidine (Catapres) 0.2 mg BID PRN PO SBP >170 Last administered on 11/28/18 07:24; Admin Dose 0.2 MG; Start 11/27/18 at 15:00 Docusate Sodium (Colace) 100 mg BID PRN PO constipation; Start 11/27/18 at 15:00 Finasteride (Proscar) 5 mg DAILY PO Last administered on 11/29/18 09:40; Admin Dose 5 MG; Start 11/28/18 at 09:00 Metoprolol Tartrate (Lopressor) 100 mg BID PO Last administered on 11/29/18 09:41; Admin Dose 100 MG; Start 11/27/18 at 21:00 Pantoprazole (Protonix Tab) 40 mg DAILY PO Last administered on 11/29/18 09:41; Admin Dose 40 MG; Start 11/28/18 at 09:00 Terazosin HCl (Hytrin) 5 mg BID PO Last administered on 11/29/18 09:41; Admin Dose 5 MG; Start 11/27/18 at 21:00 IV Flush (NS 3 ml) 3 ml PER PROTOCOL IV ; Start 11/27/18 at 15:00 Ondansetron HCl (Zofran Inj) 4 mg Q6H PRN IV NAUSEA/VOMITING; Start 11/27/18 at 15:00 Acetaminophen (Tylenol Tab) 650 mg Q6H PRN PO .PAIN 1-3 OR TEMP; Start 11/27/18 at 15:00 Magnesium Hydroxide (Milk Of Mag) 30 ml DAILY PRN PO .CONSTIPATION; Start 11/27/18 at 15:00 Heparin Sodium (Porcine) (Heparin (5000 Units/1ml)) 5,000 unit Q12 SC Last administered on 11/29/18 09:47; Admin Dose 5,000 UNIT; Start 11/27/18 at 21:00 Guaifenesin/ Dextromethorphan (Robitussin Dm Liquid Cup) 5 ml Q4H PRN PO cough Last administered on 11/27/18 20:41; Admin Dose 5 ML; Start 11/27/18 at 15:00 Hydralazine HCl (Apresoline) 10 mg Q4H PRN IV SBP >170 Last administered on 11/28/18 15:34; Admin Dose 10 MG; Start 11/28/18 at 09:00 Nifedipine (Procardia Xl) 30 mg BID PO Last administered on 11/29/18 09:41; Admin Dose 30 MG; Start 11/28/18 at 21:00 DICKSON DUNBAR MD Nov 29, 2018 11:37
--- NOTE | 2018-11-29 13:25 | PN ---
Date/Time of Note Date/Time of Note DATE: 11/29/18 TIME: 13:20 Assessment/Plan VTE Prophylaxis Risk score (from [facility] [place])>0 risk: 3 SCD applied (from [facility] [place]): No SCD contraindicated: other Pharmacological prophylaxis: NA/contraindicated Pharm contraindication: low risk/ambulating Lines/Catheters IV C[facility] Type [facility]from [facility] Saline Lock Assessment/Plan Assessment/Plan 1. Acute on chronic renal failure- stable - Nephrology consultation appreciated and will continue current care - Will avoid nephrotoxic agents 2. Hyperkalemia - resolved - will continue monitoring for another 24 hours to determine need for daily Kayexalate as outpatient - will continue monitoring - No cardiac issues appreciated 3. HTN - Will add Hydralazine TID - continue nifedipine and metoprolol 4. chronic thrombocytopenia - stable - no petechiae appreciated 5. BPH - continue home medications 6. anemia - stable - no transfusion needed at this time 7. Left carotid stenosis - evaluated by Dr. Torres as outpatient and will need to follow up after discharge for CEA 8. Disposition - Continue monitor for recurrence of hyperkalemia. If elevated tomorrow, may need to start on Kayexalate daily - BP medications adjusted given persisted elevated BP levels Result Diagram: 11/29/18 0600 11/29/18 0600 Results 24hrs Laboratory Tests Test 11/29/18 06:00 White Blood Count 6.3 # Red Blood Count 3.24 L Hemoglobin 8.8 L Hematocrit 28.2 L Mean Corpuscular Volume 87.0 Mean Corpuscular Hemoglobin 27.2 L Mean Corpuscular Hemoglobin Concent 31.2 L Red Cell Distribution Width 15.2 H Platelet Count 127 L Mean Platelet Volume 9.6 Immature Granulocytes % 0.300 Neutrophils % 64.0 Lymphocytes % 21.9 Monocytes % 8.6 Eosinophils % 4.9 Basophils % 0.3 Nucleated Red Blood Cells % 0.0 Immature Granulocytes # 0.020 Neutrophils # 4.0 Lymphocytes # 1.4 Monocytes # 0.5 Eosinophils # 0.3 Basophils # 0.0 Nucleated Red Blood Cells # 0.0 Sodium Level 139 Potassium Level 4.3 Chloride Level 108 Carbon Dioxide Level 22 Anion Gap 9 Blood Urea Nitrogen 40 H Creatinine 2.47 H Est Glomerular Filtrat Rate mL/min Glucose Level 95 Calcium Level 8.7 Phosphorus Level 4.1 Magnesium Level 2.4 Subjective 24 Hr Interval Summary Free Text/Dictation Patient denies any acute issues. Discussed plan of care given K normalized but was from [facility]. No acute overnight events. Exam/Review of Systems Exam Vitals Vital Signs Date Temp Pulse Resp B/P (MAP) Pulse Ox O2 O2 Flow FiO2 Time Delivery Rate 11/29/18 65 12:29 11/29/18 98.4 21 160/68 97 11:39 (98) 11/27/18 Room Air 18:30 Intake and Output 11/28/18 11/28/18 11/29/18 1515:00 23:00 07:00 IntakeIntake Total 1600 ml OutputOutput Total 900 ml BalanceBalance 700 ml Exam General: no acute distress Neck: Supple with full range of motion. mild left carotid murmurs Lungs: Clear to auscultation bilaterally no crackles rales or wheezing CVS: Normal S1-S2, Regular rhythm and rate. no murmurs Abdomen: Soft , nontender, nondistended , bowel sounds are present. No guarding no rebound tenderness Extremities: trace ankle swelling bilaterally, Normal to inspection, no cyanosis Skin: no rashes or lesions appreciated. Results Results 24hrs Laboratory Tests Test 11/29/18 06:00 White Blood Count 6.3 # Red Blood Count 3.24 L Hemoglobin 8.8 L Hematocrit 28.2 L Mean Corpuscular Volume 87.0 Mean Corpuscular Hemoglobin 27.2 L Mean Corpuscular Hemoglobin Concent 31.2 L Red Cell Distribution Width 15.2 H Platelet Count 127 L Mean Platelet Volume 9.6 Immature Granulocytes % 0.300 Neutrophils % 64.0 Lymphocytes % 21.9 Monocytes % 8.6 Eosinophils % 4.9 Basophils % 0.3 Nucleated Red Blood Cells % 0.0 Immature Granulocytes # 0.020 Neutrophils # 4.0 Lymphocytes # 1.4 Monocytes # 0.5 Eosinophils # 0.3 Basophils # 0.0 Nucleated Red Blood Cells # 0.0 Sodium Level 139 Potassium Level 4.3 Chloride Level 108 Carbon Dioxide Level 22 Anion Gap 9 Blood Urea Nitrogen 40 H Creatinine 2.47 H Est Glomerular Filtrat Rate mL/min Glucose Level 95 Calcium Level 8.7 Phosphorus Level 4.1 Magnesium Level 2.4 Medications Medication Current Medications Aspirin (Halfprin) 81 mg DAILY PO Last administered on 11/29/18at 09:40; Admin Dose 81 MG; Start 11/28/18 at 09:00 Clonidine (Catapres) 0.2 mg BID PRN PO SBP >170 Last administered on 11/28/18 07:24; Admin Dose 0.2 MG; Start 11/27/18 at 15:00 Docusate Sodium (Colace) 100 mg BID PRN PO constipation; Start 11/27/18 at 15:00 Finasteride (Proscar) 5 mg DAILY PO Last administered on 11/29/18 09:40; Admin Dose 5 MG; Start 11/28/18 at 09:00 Metoprolol Tartrate (Lopressor) 100 mg BID PO Last administered on 11/29/18 09:41; Admin Dose 100 MG; Start 11/27/18 at 21:00 Pantoprazole (Protonix Tab) 40 mg DAILY PO Last administered on 11/29/18 09:41; Admin Dose 40 MG; Start 11/28/18 at 09:00 Terazosin HCl (Hytrin) 5 mg BID PO Last administered on 11/29/18 09:41; Admin Dose 5 MG; Start 11/27/18 at 21:00 IV Flush (NS 3 ml) 3 ml PER PROTOCOL IV ; Start 11/27/18 at 15:00 Ondansetron HCl (Zofran Inj) 4 mg Q6H PRN IV NAUSEA/VOMITING; Start 11/27/18 at 15:00 Acetaminophen (Tylenol Tab) 650 mg Q6H PRN PO .PAIN 1-3 OR TEMP; Start 11/27/18 at 15:00 Magnesium Hydroxide (Milk Of Mag) 30 ml DAILY PRN PO .CONSTIPATION; Start 11/27/18 at 15:00 Heparin Sodium (Porcine) (Heparin (5000 Units/1ml)) 5,000 unit Q12 SC Last administered on 11/29/18 09:47; Admin Dose 5,000 UNIT; Start 11/27/18 at 21:00 Guaifenesin/ Dextromethorphan (Robitussin Dm Liquid Cup) 5 ml Q4H PRN PO cough Last administered on 11/27/18 20:41; Admin Dose 5 ML; Start 11/27/18 at 15:00 Hydralazine HCl (Apresoline) 10 mg Q4H PRN IV SBP >170 Last administered on 4/19/19at 15:34; Admin Dose 10 MG; Start 11/28/18 at 09:00 Nifedipine (Procardia Xl) 30 mg BID PO Last administered on 11/29/18at 09:41; Admin Dose 30 MG; Start 11/28/18 at 21:00 ALEXIS LAGOS MD Nov 29, 2018 13:25
[2018-11-30] VITALS (8 sets, daily range): BP systolic 126–146; BP diastolic 61–66; PULSE 63–86; RESP 16–18
[2018-11-30] MEDS: NIFEdipine (XL) 30 MG TAB PO SCH (08:58)
[2018-11-30] MEDS: METOPROLOL 100 MG TAB PO SCH (08:58)
[2018-11-30] MEDS: TERAZOSIN 5 MG CAP PO SCH (08:58)
[2018-11-30] MEDS: ASPIRIN (EC) 81 MG TAB PO SCH (08:58)
[2018-11-30] MEDS: FINASTERIDE 5 MG TAB PO SCH (08:58)
[2018-11-30] MEDS: PANTOPRAZOLE (EC) 40 MG TAB PO SCH (08:58)
[2018-11-30] MEDS: HEPARIN 5,000 UNIT/1 ML VIAL SC SCH (09:19)
--- NOTE | 2018-11-30 10:00 | PN ---
Date/Time of Note Date/Time of Note DATE: 11/30/18 TIME: 09:56 Assessment/Plan VTE Prophylaxis Risk score (from [facility])>0 risk: 3 SCD applied (from [facility]): No SCD contraindicated: low risk/ambulating Pharmacological prophylaxis: NA/contraindicated Pharm contraindication: low risk/ambulating Lines/Catheters IV Catheter Type (from [email or web address] Saline Lock Assessment/Plan Assessment/Plan 1. Acute on chronic renal failure- stable - Nephrology consultation appreciated and will continue current care - Will avoid nephrotoxic agents 2. Hyperkalemia - resolved - will discuss with Nephrology if patient needs Kayexalate as PRN after discharge - No cardiac issues appreciated 3. HTN - continue nifedipine and metoprolol and hydralazine - BP better controlled 4. chronic thrombocytopenia - stable - no petechiae appreciated 5. BPH - continue home medications 6. anemia - stable - no transfusion needed at this time 7. Left carotid stenosis - evaluated by Dr. Torres as outpatient and will need to follow up after discharge for CEA 8. Disposition - Stable for discharge home once cleared by Nephrology Result Diagram: 11/30/18 0542 11/30/18 0542 Results 24hrs Laboratory Tests Test 11/30/18 05:42 White Blood Count 5.2 Red Blood Count 2.99 L Hemoglobin 8.3 L Hematocrit 26.2 L Mean Corpuscular Volume 87.6 Mean Corpuscular Hemoglobin 27.8 L Mean Corpuscular Hemoglobin Concent 31.7 L Red Cell Distribution Width 14.9 H Platelet Count 113 L Mean Platelet Volume 9.7 Immature Granulocytes % 0.400 Neutrophils % 57.9 Lymphocytes % 24.6 Monocytes % 10.2 Eosinophils % 6.3 Basophils % 0.6 Nucleated Red Blood Cells % 0.0 Immature Granulocytes # 0.020 Neutrophils # 3.0 Lymphocytes # 1.3 Monocytes # 0.5 Eosinophils # 0.3 Basophils # 0.0 Nucleated Red Blood Cells # 0.0 Sodium Level 140 Potassium Level 4.5 Chloride Level 109 Carbon Dioxide Level 23 Anion Gap 8 Blood Urea Nitrogen 42 H Creatinine 2.57 H Glucose Level 93 Calcium Level 8.8 Phosphorus Level 4.2 Magnesium Level 2.4 Albumin 3.3 Subjective 24 Hr Interval Summary Free Text/Dictation Patient doing well and ambulating around the unit with no issues. K levels stable this am. No acute overnight events. Plan of care discussed with daughter. Exam/Review of Systems Exam Vitals Vital Signs Date Temp Pulse Resp B/P (MAP) Pulse Ox O2 O2 Flow FiO2 Time Delivery Rate 11/30/18 97.6 76 17 146/66 98 08:00 (92) 11/27/18 Room Air 18:30 Intake and Output 11/29/18 11/29/18 11/30/18 1515:00 23:00 07:00 IntakeIntake Total 570 ml BalanceBalance 570 ml Exam General: no acute distress Neck: Supple with full range of motion. Lungs: Clear to auscultation bilaterally no crackles rales or wheezing CVS: Normal S1-S2, Regular rhythm and rate. no murmurs Abdomen: Soft , nontender, nondistended , bowel sounds are present. No guarding no rebound tenderness Extremities: trace ankle swelling bilaterally, Normal to inspection, no cyanosis Skin: no rashes or lesions appreciated. Results Results 24hrs Laboratory Tests Test 11/30/18 05:42 White Blood Count 5.2 Red Blood Count 2.99 L Hemoglobin 8.3 L Hematocrit 26.2 L Mean Corpuscular Volume 87.6 Mean Corpuscular Hemoglobin 27.8 L Mean Corpuscular Hemoglobin Concent 31.7 L Red Cell Distribution Width 14.9 H Platelet Count 113 L Mean Platelet Volume 9.7 Immature Granulocytes % 0.400 Neutrophils % 57.9 Lymphocytes % 24.6 Monocytes % 10.2 Eosinophils % 6.3 Basophils % 0.6 Nucleated Red Blood Cells % 0.0 Immature Granulocytes # 0.020 Neutrophils # 3.0 Lymphocytes # 1.3 Monocytes # 0.5 Eosinophils # 0.3 Basophils # 0.0 Nucleated Red Blood Cells # 0.0 Sodium Level 140 Potassium Level 4.5 Chloride Level 109 Carbon Dioxide Level 23 Anion Gap 8 Blood Urea Nitrogen 42 H Creatinine 2.57 H Glucose Level 93 Calcium Level 8.8 Phosphorus Level 4.2 Magnesium Level 2.4 Albumin 3.3 Medications Medication Current Medications Aspirin (Halfprin) 81 mg DAILY PO Last administered on 11/30/18at 08:58; Admin Dose 81 MG; Start 11/28/18 at 09:00 Clonidine (Catapres) 0.2 mg BID PRN PO SBP >170 Last administered on 11/28/18at 07:24; Admin Dose 0.2 MG; Start 11/27/18 at 15:00 Docusate Sodium (Colace) 100 mg BID PRN PO constipation; Start 11/27/18 at 15:00 Finasteride (Proscar) 5 mg DAILY PO Last administered on 11/30/18 08:58; Admin Dose 5 MG; Start 11/28/18 at 09:00 Metoprolol Tartrate (Lopressor) 100 mg BID PO Last administered on 11/30/18 08:58; Admin Dose 100 MG; Start 11/27/18 at 21:00 Pantoprazole (Protonix Tab) 40 mg DAILY PO Last administered on 11/30/18 08:58; Admin Dose 40 MG; Start 11/28/18 at 09:00 Terazosin HCl (Hytrin) 5 mg BID PO Last administered on 11/30/18 08:58; Admin Dose 5 MG; Start 11/27/18 at 21:00 IV Flush (NS 3 ml) 3 ml PER PROTOCOL IV ; Start 11/27/18 at 15:00 Ondansetron HCl (Zofran Inj) 4 mg Q6H PRN IV NAUSEA/VOMITING; Start 11/27/18 at 15:00 Acetaminophen (Tylenol Tab) 650 mg Q6H PRN PO .PAIN 1-3 OR TEMP Last administered on 11/29/18 17:39; Admin Dose 650 MG; Start 11/27/18 at 15:00 Magnesium Hydroxide (Milk Of Mag) 30 ml DAILY PRN PO .CONSTIPATION; Start at 15:00 Heparin Sodium (Porcine) (Heparin (5000 Units/1ml)) 5,000 unit Q12 SC Last administered on 11/30/18 09:19; Admin Dose 5,000 UNIT; Start 11/27/18 at 21:00 Guaifenesin/ Dextromethorphan (Robitussin Dm Liquid Cup) 5 ml Q4H PRN PO cough Last administered on 11/27/18 20:41; Admin Dose 5 ML; Start 11/27/18 at 15:00 Hydralazine HCl (Apresoline) 10 mg Q4H PRN IV SBP >170 Last administered on 11/28/18 15:34; Admin Dose 10 MG; Start 11/28/18 at 09:00 Nifedipine (Procardia Xl) 30 mg BID PO Last administered on 11/30/18 08:58; Admin Dose 30 MG; Start 11/28/18 at 21:00 Hydralazine HCl (Apresoline) 25 mg TID PO Last administered on 11/30/18at 08:58; Admin Dose 25 MG; Start 11/29/18 at 14:00 ALEXIS LAGOS MD Nov 30, 2018 10:00
--- NOTE | 2018-11-30 10:03 | PDOCDIS ---
Discharge Instructions DIAGNOSIS Discharge Diagnosis 1. Acute on chronic renal failure- stable 2. Hyperkalemia- resolved 3. HTN 4. chronic thrombocytopenia 5. BPH 6. anemia 7. Left carotid stenosis CONDITION [id number] Patient Condition: [id number] Stable HOME CARE INSTRUCTIONS: [id number] Diet Instructions: [id number] Low Fat /Cholesterol [id number] Special Diet: [id number] low potassium diet FOLLOW UP/APPOINTMENTS Follow-up Plan 1. Follow up with your primary care physician in 1-[address] Rachel office to make a follow up appointment to schedule your surgery 3. Take all medications as prescribed. An additional medication to control your blood pressure was added since it was running high in the hospital. Do not take hydrochlorothiazide since it causes more dehydration and injury to your kidney function 4. Follow up with Dr. Camara in 1-2 weeks 5. If experiencing any concerning symptoms, please go to your closest emergency department ALEXIS LAGOS MD Nov 30, 2018 10:03
--- NOTE | 2018-11-30 12:41 | CONS ---
Assessment/Plan Assessment/Plan Assessment/Plan (Daily) 1. Chronic kidney disease, stage IIIB/IV with baseline creatinine around 2.3 to 2.5 mg/dL. The patient's renal function is near baseline. We will continue current treatment plan, supportive care, renally dose all meds. 2. Hyperkalemia. s/p kayexalate. K improved 3. Mineral bone disorder, monitor calcium and phosphorus levels. Continue vitamin D analogs. 4. Anemia. Continue to monitor hemoglobin and hematocrit levels. 5. Carotid stenosis. The patient is pending carotid endarterectomy by Dr. Torres. This likely will be done in outpatient setting. 6. Benign prostatic hypertrophy. Continue medical management. 7. History of coronary artery disease. 8. Chronic thrombocytopenia. ok for discharge Consultation Date/Type/Reason Admit Date/Time Nov 27, 2018 at 13:09 Initial Consult Date Date/Time of Note DATE: 11/30/18 TIME: 12:40 24 HR Interval Summary Free Text/Dictation denies shortness of breath, n/v or urinary issues d.w rn gen nad cv rrr pulm ctab abd soft, nd, nt +bs ext: no edema Exam/Review of Systems Exam Vitals Vital Signs Date Temp Pulse Resp B/P (MAP) Pulse Ox O2 O2 Flow FiO2 Time Delivery Rate 11/30/18 98.0 85 18 146/63 99 12:08 (90) 11/27/18 Room Air 18:30 Intake and Output 11/29/18 11/29/18 11/30/18 1515:00 23:00 07:00 IntakeIntake Total 570 ml BalanceBalance 570 ml Results Result Diagram: 11/30/18 0542 11/30/18 0542 Results 24hrs Laboratory Tests Test 11/30/18 05:42 White Blood Count 5.2 Red Blood Count 2.99 L Hemoglobin 8.3 L Hematocrit 26.2 L Mean Corpuscular Volume 87.6 Mean Corpuscular Hemoglobin 27.8 L Mean Corpuscular Hemoglobin Concent 31.7 L Red Cell Distribution Width 14.9 H Platelet Count 113 L Mean Platelet Volume 9.7 Immature Granulocytes % 0.400 Neutrophils % 57.9 Lymphocytes % 24.6 Monocytes % 10.2 Eosinophils % 6.3 Basophils % 0.6 Nucleated Red Blood Cells % 0.0 Immature Granulocytes # 0.020 Neutrophils # 3.0 Lymphocytes # 1.3 Monocytes # 0.5 Eosinophils # 0.3 Basophils # 0.0 Nucleated Red Blood Cells # 0.0 Sodium Level 140 Potassium Level 4.5 Chloride Level 109 Carbon Dioxide Level 23 Anion Gap 8 Blood Urea Nitrogen 42 H Creatinine 2.57 H Glucose Level 93 Calcium Level 8.8 Phosphorus Level 4.2 Magnesium Level 2.4 Albumin 3.3 Medications Medication Current Medications Aspirin (Halfprin) 81 mg DAILY PO Last administered on 11/30/18 08:58; Admin Dose 81 MG; Start 11/28/18 at 09:00 Clonidine (Catapres) 0.2 mg BID PRN PO SBP >170 Last administered on 11/28/18 07:24; Admin Dose 0.2 MG; Start 11/27/18 at 15:00 Docusate Sodium (Colace) 100 mg BID PRN PO constipation; Start 11/27/18 at 15:00 Finasteride (Proscar) 5 mg DAILY PO Last administered on 11/30/18 08:58; Admin Dose 5 MG; Start 11/28/18 at 09:00 Metoprolol Tartrate (Lopressor) 100 mg BID PO Last administered on 11/30/18 08:58; Admin Dose 100 MG; Start 11/27/18 at 21:00 Pantoprazole (Protonix Tab) 40 mg DAILY PO Last administered on 11/30/18 08:58; Admin Dose 40 MG; Start 11/28/18 at 09:00 Terazosin HCl (Hytrin) 5 mg BID PO Last administered on 11/30/18 08:58; Admin Dose 5 MG; Start 11/27/18 at 21:00 IV Flush (NS 3 ml) 3 ml PER PROTOCOL IV ; Start 11/27/18 at 15:00 Ondansetron HCl (Zofran Inj) 4 mg Q6H PRN IV NAUSEA/VOMITING; Start 11/27/18 at 15:00 Acetaminophen (Tylenol Tab) 650 mg Q6H PRN PO .PAIN 1-3 OR TEMP Last administered on 11/29/18 17:39; Admin Dose 650 MG; Start 11/27/18 at 15:00 Magnesium Hydroxide (Milk Of Mag) 30 ml DAILY PRN PO .CONSTIPATION; Start 11/27/18 at 15:00 Heparin Sodium (Porcine) (Heparin (5000 Units/1ml)) 5,000 unit Q12 SC Last administered on 11/30/18 09:19; Admin Dose 5,000 UNIT; Start 11/27/18 at 21:00 Guaifenesin/ Dextromethorphan (Robitussin Dm Liquid Cup) 5 ml Q4H PRN PO cough Last administered on 11/27/18 20:41; Admin Dose 5 ML; Start 11/27/18 at 15:00 Hydralazine HCl (Apresoline) 10 mg Q4H PRN IV SBP >170 Last administered on 11/28/18at 15:34; Admin Dose 10 MG; Start 11/28/18 at 09:00 Nifedipine (Procardia Xl) 30 mg BID PO Last administered on 11/30/18 08:58; Admin Dose 30 MG; Start 11/28/18 at 21:00 Hydralazine HCl (Apresoline) 25 mg TID PO ; Start 11/30/18 at 13:00 DICKSON UDNBAR MD Nov 30, 2018 12:41
[2018-11-30] MEDS ORDERED: HYDR-3672 PO (12:55)
--- NOTE | 2018-11-30 15:11 | DS ---
Date/Time of Note Date/Time of Note DATE: 11/30/18 TIME: 15:08 Discharge Summary Admission/Discharge Info Admit Date/Time Nov 27, 2018 at 13:09 Discharge Date/Time 11/30/18 Discharge Diagnosis 1. Acute on chronic renal failure- stable 2. Hyperkalemia- resolved 3. HTN 4. chronic thrombocytopenia 5. BPH 6. anemia 7. Left carotid stenosis Patient Condition: Stable Consults Nephrology- Dr. Camara Hx of Present Illness 78 yo M with PMH HTN, right carotid stenosis, DEEPAK on CKD, anemia, chronic thrombocytopenia, and BPH was sent by Academic Affairs Director due to elevated K of 6.4. Patient denies any dizziness, chest pain, shortness of breath, muscle spasms, palpitations, abdominal issues, or urinary issues. Patient does admits to productive cough for the past 2 weeks with occasional yellow phlegm but denies any fevers or chills. Patient was recently discharged in September after admission for syncopal episode. Since discharge he was supposed to follow up with Dr. Torres due to L sided carotid stenosis. Per daughter, he did not undergo the procedure since was told his renal function and potassium was not optimal. Patient does admit to bilateral ankle swelling. In ED, patient was found with K 5.3 and was seen by Dr. Camara. Hospital Course Patient was admitted for close monitoring of renal function and potassium levels. Patient was given Kayexalate 60mg after K continued to trend up and improved to 4.5 after BMs. Patient did not experience any cardiac event during hospitalization. Patient was evaluated by Nephrology and cleared for discharge given stability of renal function and potassium levels. Dr. Torres was informed of patients admission and recommended follow up as outpatient after discharge. Patients vitals remained stable and was discharged home in good condition. Home Meds Active Scripts Hydralazine Hcl* (Apresoline*) 50 Mg Tab, 25 MG PO TID for 30 Days, #90 TAB 1 Refill Prov:ALEXIS LAGOS MD 11/30/18 Reported Medications Pantoprazole* (Protonix*) 40 Mg Tablet., 40 MG PO DAILY, TAB 11/10/18 Terazosin Hcl* (Terazosin Hcl*) 5 Mg Capsule, 5 MG PO BID, CAP 11/10/18 Docusate Sodium* (Colace*) 100 Mg Capsule, 100 MG PO BID, #60 CAP 11/10/18 Nifedipine* (Nifedipine ER*) 30 Mg Tablet.sa, 30 MG PO BID, TAB.SA 11/10/18 Finasteride* (Finasteride*) 5 Mg Tablet, 5 MG PO DAILY, TAB 11/10/18 Metoprolol Tartrate* (Lopressor*) 100 Mg Tablet, 100 MG PO BID, #60 TAB 11/10/18 Aspirin Ec (Aspir 81) 81 Mg Tablet.dr, 81 MG PO DAILY, #30 TAB 09/20/18 Discontinued Reported Medications Hydrochlorothiazide* (Hydrochlorothiazide*) 12.5 Mg Tablet, 12.5 MG PO DAILY, #30 TAB 11/27/18 Clonidine Hcl* (Clonidine Hcl*) 0.2 Mg Tablet, 0.2 MG PO BID PRN for ELEVATED BLOOD PRESSURE, TAB 11/10/18 Irbesartan* (Irbesartan*) 150 Mg Tablet, 150 MG PO BID, TAB 11/10/18 Follow-up Plan 1. Follow up with your primary care physician in 1-[address] Rachel office to make a follow up appointment to schedule your surgery 3. Take all medications as prescribed. An additional medication to control your blood pressure was added since it was running high in the hospital. Do not take hydrochlorothiazide since it causes more dehydration and injury to your kidney function 4. Follow up with Dr. Camara in 1-2 weeks 5. If experiencing any concerning symptoms, please go to your closest emergency department Primary Care Provider Gauri Sorto Time spent on discharge: > 30 minutes Pending Labs Laboratory Tests Test 11/30/18 05:42 White Blood Count 5.2 10^3/ul (4.8-10.8) Red Blood Count 2.99 10^6/ul (4.70-6.10) Hemoglobin 8.3 g/dl (14.0-18.0) Hematocrit 26.2 % (42.0-52.0) Mean Corpuscular Volume 87.6 fl (82.0-101.0) Mean Corpuscular Hemoglobin 27.8 pg (29.0-33.0) Mean Corpuscular Hemoglobin Concent 31.7 g/dl (32.0-37.0) Red Cell Distribution Width 14.9 % (11.5-14.5) Platelet Count 113 10^3/UL (140-415) Mean Platelet Volume 9.7 fl (7.4-10.4) Immature Granulocytes % 0.400 % (0.001-0.429) Neutrophils % 57.9 % (39.0-77.0) Lymphocytes % 24.6 % (15.0-51.0) Monocytes % 10.2 % (0.0-11.0) Eosinophils % 6.3 % (0.0-7.0) Basophils % 0.6 % (0.0-2.0) Nucleated Red Blood Cells % 0.0 /100WBC (0.0-0.0) Immature Granulocytes # 0.020 10^3/ul (0.0-0.031) Neutrophils # 3.0 10^3/ul (1.6-7.5) Lymphocytes # 1.3 10^3/ul (0.8-2.9) Monocytes # 0.5 10^3/ul (0.3-0.9) Eosinophils # 0.3 10^3/ul (0.0-0.5) Basophils # 0.0 10^3/ul (0.0-0.1) Nucleated Red Blood Cells # 0.0 10^3/ul (0.0-0.0) Sodium Level 140 mmol/L (135-144) Potassium Level 4.5 mmol/L (3.5-5.1) Chloride Level 109 mmol/L (97-110) Carbon Dioxide Level 23 mmol/L (21-31) Anion Gap 8 (5-13) Blood Urea Nitrogen 42 mg/dl (7-20) Creatinine 2.57 mg/dl (0.61-1.24) Glucose Level 93 mg/dl (70-220) Calcium Level 8.8 mg/dl (8.4-10.2) Phosphorus Level 4.2 mg/dl (2.5-4.9) Magnesium Level 2.4 mg/dl (1.7-2.5) Albumin 3.3 g/dl (3.3-4.9) ALEXIS LAGOS MD Nov 30, 2018 15:11
== END 2018-11-30 16:00 | disposition home or self-care (01) | DRG 684 ==
LOC: E/R 10:45 → 6WM 13:09
PROVIDERS: ADMIT Internal Medicine; ATTEND Internal Medicine
DX: N17.9 Acute kidney failure, unspecified (principal); I12.9 Hypertensive chronic kidney disease with stage 1 through stage 4 chronic kidney disease, or unspecified chronic kidney disease; N18.3 Chronic kidney disease, stage 3 (moderate); E87.5 Hyperkalemia; D69.6 Thrombocytopenia, unspecified; N40.0 Benign prostatic hyperplasia without lower urinary tract symptoms; D64.9 Anemia, unspecified; I65.22 Occlusion and stenosis of left carotid artery; I25.10 Atherosclerotic heart disease of native coronary artery without angina pectoris
CPT/HCPCS: 80048; 80069; 83735; 84100; 85025; 93005; 97162; 97166; J0360; J1644; J1815; Q5105